=== PATIENT | male | born 1985 | race Caucasian/White ===

== ENCOUNTER 2021-12-16 11:16 | Emergency (ER) | payer BC ==
[~2021-12-16] VITALS: Ht 162.6 cm; Wt 70.0 kg
[2021-12-16] MEDS ORDERED: PERTUSS(ACELL),DIPH,TET VAC/PF 0.5 ML SYRINGE IM. ONE (12:30)
[2021-12-16] MEDS ORDERED: SODIUM CHLORIDE 0.9% 250 ML IRRIG SOLUTION BOTTLE IRRIG ONE (12:30)
[2021-12-16 13:20] VITALS: BP 122/68
== END 2021-12-16 13:51 | disposition home or self-care (01) ==
LOC: EMS 11:22
DX: S51.812A Laceration without foreign body of left forearm, initial encounter (principal); W25.XXXA Contact with sharp glass, initial encounter; Y93.89 Activity, other specified; Y92.89 Other specified places as the place of occurrence of the external cause; Y99.8 Other external cause status
CPT/HCPCS: 90471; 90715; 99283